=== PATIENT | female | born 1955 | race Caucasian/White ===

== ENCOUNTER → 2018-11-13 10:01 | Outpatient (CLI) | payer OTHER, SELFPAY | PROVIDERS: Family Provider Physician Assistant; PCP Physician Assistant; Visit Provider Nurse Practitioner Gerontology | DX: C50.919 Malignant neoplasm of unspecified site of unspecified female breast (principal); M85.851 Other specified disorders of bone density and structure, right thigh; Z78.0 Asymptomatic menopausal state; Z82.62 Family history of osteoporosis; E07.9 Disorder of thyroid, unspecified | CPT/HCPCS: 77080 ==

== ENCOUNTER → 2018-11-29 08:06 | Outpatient (CLI) | payer OTHER, SELFPAY ==
--- NOTE | 2018-11-29 | DI.MG.S_ITS ---
UNILATERAL LEFT DIGITAL SCREENING MAMMOGRAM 3D/2D WITH CAD POST MASTECTOMY WITH AUGMENTATION: 11/29/2018 CLINICAL: Routine screening. Personal history of right breast cancer. Comparison is made to exams dated: 11/12/2017 mammogram, 09/30/2015 mammogram, and 11/09/2016 mammogram - [facility]. The tissue of left breast is heterogeneously dense. This may lower the sensitivity of mammography. Current study was also evaluated with a Computer Aided Detection (CAD) system. There is an asymmetry in the left breast anterior depth superior region seen on the mediolateral oblique view only, with possible associated architectural distortion. Finding is best noted on tomographic LMLO slice 40/67. There is an asymmetry in the left breast middle depth lateral region seen on the craniocaudal view only. Left breast implant with lobulated contours suggesting implant rupture appears stable to prior exams. IMPRESSION: INCOMPLETE: NEEDS ADDITIONAL IMAGING EVALUATION 1) The asymmetry in the left breast anterior depth superior region is indeterminate. Additional views with possible ultrasound are recommended. 2) The asymmetry in the left breast middle depth lateral region is indeterminate. Additional views with possible ultrasound are recommended. This exam was interpreted at Station ID: [id number]. NOTE: For mammograms, a report in lay terms will be sent to the patient. Approximately 15% of breast malignancies will not be visualized mammographically. In the management of a palpable breast mass, a negative mammogram must not discourage biopsy of a clinically suspicious lesion. Electronically Signed By: Fabian Rouse M.D. ecl/:11/29/2018 15:12:43 copy to: [facility] letter sent: Additional Imaging Needed ACR BI-RADS Category 0: Incomplete 3340F
[2018-11-29 09:47] LABS: Add Manual Diff / Slide Review NO; Basophils Absolute Auto 0 /uL (0-100); Basophils Percent Auto 0.5 % (0-2); Eosinophils Absolute Auto 200 /uL (0-450); Hematocrit 40.9 % (36-46); Hemoglobin 13.5 g/dL (12.0-16.0); Lymphocytes Absolute Auto 2100 /uL (1100-4500); Lymphocytes Percent Auto 27.5 % (25-40); Mean Corpuscular HGB Conc 33.1 % (30-36); Mean Corpuscular Hemoglobin 29.5 PG (26-34); Mean Corpuscular Volume 89.3 fL (80-100); Monocytes Absolute Auto 500 /uL (0-900); Monocytes Percent Auto 6.2 % (3-14); Neutrophils Absolute Auto 4900 /uL (1500-7000); Neutrophils Percent Auto 63.8 % (50-75); Platelet Count 272 X10^3/uL (150-400); Red Blood Cell Count 4.58 X10^6/uL (4.0-5.2); Red Cell Distribution Width 13.3 % (11.6-14.8); White Blood Cell Count 7.7 X10^3/uL (4.5-11.0)
[2018-11-29 10:19] LABS: Alanine Aminotransferase 45 IU/L (9-52); Albumin 4.4 g/dL (3.5-5.0); Albumin Globulin Ratio 1.5 (1.0-2.8); Alkaline Phosphatase 57 U/L (38-126); Aspartate Aminotransferase 32 IU/L (14-36); BUN Creatinine Ratio 22.5 (6-22); Bilirubin Total 0.4 mg/dL (0.2-1.3); Blood Urea Nitrogen 18 mg/dL (7-17); Calcium 9.3 mg/dL (8.4-10.2); Carbon Dioxide 25 mmol/L (22-32); Chloride 101 mmol/L (98-107); Estimated Glomerular Filt Rate > 60.0 mL/min (>60); Glucose 189 mg/dL (80-110); HEMOLYSIS < 15 (0-50); Potassium 4.3 mmol/L (3.4-5.1); Sodium 138 mmol/L (137-145); Total Protein 7.4 g/dL (6.3-8.2)
== END ==
PROVIDERS: Family Provider Nurse Practitioner Gerontology; PCP Physician Assistant; Visit Provider Physician Assistant
DX: Z12.31 Encounter for screening mammogram for malignant neoplasm of breast (principal); C50.919 Malignant neoplasm of unspecified site of unspecified female breast
CPT/HCPCS: 36415; 77063; 77067; 80053; 85025

== ENCOUNTER → 2019-01-01 14:43 | Outpatient (CLI) | payer OTHER, SELFPAY ==
--- NOTE | 2019-01-01 14:47 | DI.MG.S_ITS ---
UNILATERAL LEFT DIGITAL DIAGNOSTIC MAMMOGRAM 3D/2D WITH ADDITIONAL VIEWS POST MASTECTOMY: 01/01/2019 CLINICAL: Additional evaluation requested from prior study. Comparison is made to exams dated: 11/29/2018 mammogram, 11/12/2017 mammogram, and 11/09/2016 mammogram - [facility]. The tissue of left breast is heterogeneously dense. This may lower the sensitivity of mammography. Previously noted asymmetry in the left breast anterior depth superior region seen on the mediolateral oblique view only with possible associated architectural distortion seen on comparison screening mammogram resolves with additional views and likely represented superimposition of benign anatomic tissues. This appeared to localize to the superior lateral left breast on comparison tomosynthesis views. Previously noted asymmetry in the left breast middle depth lateral region seen on the craniocaudal view only on comparison screening mammogram resolves with additional views and likely represented superimposition of benign anatomic tissues. Partially imaged breast implant noted. IMPRESSION: INCOMPLETE: NEEDS ADDITIONAL IMAGING EVALUATION Previously noted asymmetry in the left breast anterior depth superior region seen on the mediolateral oblique view only with possible associated architectural distortion seen on comparison screening mammogram resolves with additional views and likely represented superimposition of benign anatomic tissues. This appeared to localize to the superior lateral left breast on comparison tomosynthesis views. A targeted ultrasound is recommended and will be performed immediately following this exam. This exam was interpreted at Station ID: [id number]. NOTE: For mammograms, a report in lay terms will be sent to the patient. Approximately 15% of breast malignancies will not be visualized mammographically. In the management of a palpable breast mass, a negative mammogram must not discourage biopsy of a clinically suspicious lesion. Electronically Signed By: Fabian Rouse M.D. ecl/:01/01/2019 15:57:22 copy to: [facility] BI-RADS Category 0: Incomplete 3340F
--- NOTE | 2019-01-01 14:48 | DI.US.S_ITS ---
LIMITED ULTRASOUND OF LEFT BREAST: 01/01/2019 CLINICAL: Patient returns today to evaluate an architectural distortion in the left breast. Comparison is made to exams dated: 01/01/2019 mammogram, 11/29/2018 mammogram, 11/12/2017 mammogram, 11/09/2016 mammogram, 09/30/2015 mammogram, and 09/22/2014 mammogram - [facility]. Real-time and Doppler ultrasound of the left breast upper outer quadrant were performed. Gutierrez scale images of the real-time examination were reviewed. No underlying breast mass or abnormality is identified. There is no ultrasound correlate for the previously noted asymmetry in the left breast anterior depth superior region seen on the mediolateral oblique view only with possible associated architectural distortion on comparison screening mammograms, which also resolved on additional diagnostic mammogram views performed earlier today. IMPRESSION: NEGATIVE There is no sonographic evidence of malignancy in the imaged portions of the left breast. Return to annual screening mammography is recommended. The patient is advised to monitor her breasts and to return sooner for re-evaluation should she feel anything grow or change. This exam was interpreted at Station ID: [id number]. Electronically Signed By: Fabian Rouse M.D. ecl/:01/01/2019 15:59:39 copy to: [facility] letter sent: Normal Exam Ultrasound BI-RADS: 1 Negative
== END ==
PROVIDERS: PCP Physician Assistant
DX: R92.8 Other abnormal and inconclusive findings on diagnostic imaging of breast (principal)
CPT/HCPCS: 76642; 77065; G0279

== ENCOUNTER → 2020-04-02 14:59 | Outpatient (CLI) | payer OTHER, SELFPAY ==
--- NOTE | 2020-04-02 15:29 | DI.MG.S_ITS ---
UNILATERAL LEFT DIGITAL SCREENING MAMMOGRAM 3D/2D WITH CAD POST LUMPECTOMY WITH AUGMENTATION: 04/02/2020 CLINICAL: Routine screening. Personal history of right breast cancer. Comparison is made to exams dated: 01/01/2019 mammogram, 11/29/2018 mammogram, and 11/12/2017 mammogram - [facility]. There are scattered fibroglandular elements in left breast. Current study was also evaluated with a Computer Aided Detection (CAD) system. No significant masses, calcifications, or other findings are seen in the breast. There has been no significant interval change. IMPRESSION: NEGATIVE There is no mammographic evidence of malignancy. A 1 year screening mammogram is recommended. This exam was interpreted at Station ID: [id number]. NOTE: For mammograms, a report in lay terms will be sent to the patient. Approximately 15% of breast malignancies will not be visualized mammographically. In the management of a palpable breast mass, a negative mammogram must not discourage biopsy of a clinically suspicious lesion. Electronically Signed By: Kenneth collins/timothy:04/02/2020 16:48:26 copy to: [facility] letter sent: Normal Exam ACR BI-RADS Category 1: Negative 3341F
== END ==
PROVIDERS: PCP Physician Assistant
DX: Z12.31 Encounter for screening mammogram for malignant neoplasm of breast (principal); Z85.3 Personal history of malignant neoplasm of breast
CPT/HCPCS: 77063; 77067; 77080

== ENCOUNTER → 2020-04-23 08:55 | Outpatient (CLI) | payer OTHER, SELFPAY ==
--- NOTE | 2020-04-23 09:00 | DI.US.S_ITS ---
PROCEDURE: US CAROTID DOPPLER BI INDICATIONS: HTN; PLAQUE ON DENTAL FILM TECHNIQUE: Color and pulse Doppler interrogation was performed of both carotid systems, with image documentation and velocity measurements. COMPARISON: None. FINDINGS: Stenosis calculations are based on SRU (Society of Radiologists in Ultrasound) criteria. Right side: Brachial blood pressure: Not performed Common carotid artery peak systolic velocity: 66 cm/sec. Internal carotid artery peak systolic velocity: 57 cm/sec. Internal carotid artery end diastolic velocity: 21 cm/sec. External carotid artery peak systolic velocity: 69 cm/sec. ICA/CCA peak systolic ratio: 0.9 . Gutierrez scale imaging description: Small sessile focus of calcified plaque at the right ICA origin which causes a subjectively mild luminal stenosis. The waveforms remain normal. Percent internal carotid artery stenosis: Less than 50 % . Vertebral artery: Flow direction is antegrade. Left side: Brachial blood pressure: 123/77 mm Hg. Common carotid artery peak systolic velocity: 89 cm/sec. Internal carotid artery peak systolic velocity: 67 cm/sec. Internal carotid artery end diastolic velocity: 29 cm/sec. External carotid artery peak systolic velocity: 70 cm/sec. ICA/CCA peak systolic ratio: 0.8 . Gutierrez scale imaging description: Moderate length calcified plaque from the carotid bulb extending into the ICA for a length of about 1.8 cm causing mild subjective luminal stenosis. The waveform remains normal without spectral broadening. Percent internal carotid artery stenosis: Less than 50% . Vertebral artery: Flow direction is antegrade. IMPRESSION: 1. Calcified plaque involving the origins of both internal carotid arteries, without causing significant luminal stenosis on either side. Stenoses are estimated to be less than 50% bilaterally. 2. Antegrade vertebral artery flow bilaterally. Dictated by: Emilia Phillips M.D. on 04/23/2020 at 10:08 Approved by: Emilia Phillips M.D. on 04/23/2020 at 10:27
== END ==
PROVIDERS: PCP Physician Assistant; Referring Provider Physician Assistant; Visit Provider Physician Assistant
DX: I65.23 Occlusion and stenosis of bilateral carotid arteries (principal); R93.0 Abnormal findings on diagnostic imaging of skull and head, not elsewhere classified; E11.9 Type 2 diabetes mellitus without complications; I10 Essential (primary) hypertension; E78.5 Hyperlipidemia, unspecified
CPT/HCPCS: 93880

== ENCOUNTER → 2020-05-11 09:34 | Outpatient (CLI) | payer OTHER, SELFPAY ==
[2020-05-12 09:15] LABS: COVID19 Sendout Not Detected (Not Detect)
== END ==
PROVIDERS: PCP Physician Assistant; Visit Provider Physician Assistant
DX: Z11.59 Encounter for screening for other viral diseases (principal)
CPT/HCPCS: 87635

== ENCOUNTER 2020-05-14 08:03 | Day surgery (SDC) | payer OTHER, SELFPAY ==
[2020-05-14] VITALS (8 sets, daily range): BP systolic 115–134; BP diastolic 68–78; PULSE 77–101; RESP 10–17; TEMP 36.3; O2SAT 94–99; BMI 29.8
[2020-05-14] MEDS: SODIUM CHLORIDE 0.9% 1,000 ML 200 ML IV (08:24)
--- NOTE | 2020-05-14 09:27 | PM.HP.1 ---
History of Present Illness History of Present Illness Date Patient Seen: 05/14/20 Time Patient Seen: 09:27 Chief [place] [facility] [place]arrative: This is a 64-year-old woman who had a prior colonoscopy 13 years ago which was reportedly normal. She denies any new symptoms of abdominal pain, change in bowel habits, melena, hematochezia, or unexplained weight loss. She has a family history of colon cancer in a grandparent, but no primary relatives with colon cancers or colon polyps per the patient. She denies any significant medical problems. She does have type 2 diabetes and hypertension listed in her chart. She has never had a heart attack or stroke. Had some nausea after her prior mastectomy procedure. ROS: Sleep apnea, hearing aids, [employer]teen system review is otherwise negative other than as mentioned below and in HPI. PE: GENERAL: Well groomed and cooperative. Appears stated age. Answers questions promptly and appropriately. Vital signs noted. HENT: Normocephalic, atraumatic. Hearing intact. EYES: Conjunctiva pink, sclera white, no periorbital swelling. CARDIOVASCULAR: Regular rate. No pedal edema. RESPIRATORY: Non-tachypneic, breathing comfortably on room air. GASTROINTESTINAL: Abdomen soft and non-distended GENITALURINARY: No flank tenderness. MUSCULOSKELETAL: Equal tone and mass bilaterally. SKIN: Warm, dry, soft, appropriate color for ethnicity. No other lesions, rashes, or wounds. NEURO: Alert and Oriented X 3. No gross sensory deficits, or cognitive issues. PSYCH: Appropriate affect and mood. Patient History Medical History Breast cancer (Resolved 01/2012) Diabetes (Chronic 10/2017) Hyperlipemia (Chronic) Hypertension (Chronic) Hypothyroidism (Chronic) Obstructive sleep apnea (Chronic ~11/2017) Surgical History Hx of appendectomy (Resolved 06/2017) Hx of arthroscopy of knee (Resolved 07/2013) Status post dilation and curettage (~01/2014) Status post partial mastectomy (03/2013) Family & Social History Family History Mother Heart disease Social History: household members spouse Tobacco & Substance use: Smoking Status Never smoker alcohol intake current alcohol intake frequency holiday/special occasion Substance Use Type does not use Meds Home Medications and Allergies Home Medications Medication Instructions Recorded Confirmed Type CHOLECALCIFEROL (D-3) 1,000 iu PO QDAY #0 02/27/13 05/14/20 History multivitamin [Multiple Vitamins] 1 tab PO QDAY #0 05/13/13 05/14/20 History alendronate [Fosamax] 70 mg PO QWEEK 05/09/18 05/14/20 History calcium carbonate [Calcium 600] 600 mg PO DAILY 05/09/18 05/14/20 History Fish Oil See Rx Instructions .ROUTE .COMPLEX 06/06/18 05/14/20 History Glucometer #1 ea 06/06/18 08/13/19 Rx Glucosamine/Chondroitin See Rx Instructions .ROUTE .COMPLEX 06/06/18 05/14/20 History Lancets #100 each 06/06/18 08/13/19 Rx Magnesium See Rx Instructions .ROUTE .COMPLEX 06/06/18 05/14/20 History Test Strips #100 each 06/06/18 08/13/19 Rx levothyroxine 50 mcg tablet 50 mcg PO DAILY #90 tab 02/27/19 05/14/20 Rx amlodipine 5 mg-benazepril 20 mg 1 cap PO DAILY #90 cap 08/13/19 05/14/20 Rx capsule simvastatin 20 mg tablet 20 mg PO HS #90 tab 08/13/19 05/14/20 Rx Bilateral Hearing Aids #1 ea 10/06/19 Rx bupropion HCl 150 mg tablet,12 hr 150 mg PO QPM #90 tab 11/03/19 05/14/20 Rx sustained-release letrozole [Femara] 2.5 mg PO QPM #90 tab 12/11/19 05/14/20 Rx dulaglutide 0.75 mg/0.5 mL 0.75 mg SUBCUT QWEEK #2 ml 12/16/19 05/14/20 Rx subcutaneous pen injector gabapentin 300 mg PO DAILY #90 cap 04/14/20 05/14/20 Rx Allergies Allergy/AdvReac Type Severity Reaction Status Date / Time adhesive [ADHESIVE] Allergy Mild Tape/rash Verified 05/14/20 08:26 paper tape ok erythromycin base Allergy Mild Nausea Verified 05/14/20 08:26 [ERYTHROMYCIN BASE] metformin AdvReac Intermediate Diarrhea Verified 05/14/20 08:26 CAT DANDER Allergy Intermediate TICKLE IN Uncoded 05/11/20 09:33 THROAT AND COUGHING PAIN MEDICATION AdvReac Intermediate NAUSEA. Uncoded 05/11/20 09:33 UNSURE IF OXYCODONE OR HYDROCODONE Exam Vital Signs (past 8 hours): - 05/14/20 08:30 Temperature 97.4 F L Pulse Rate 101 H Respiratory Rate 16 Blood Pressure 134/78 Pulse Oximetry 99 Oxygen Delivery Method Room Air Assessment & Plan Assessment and plan (1) At average risk for colon cancer: Status: Acute Assessment & Plan narrative: Risks and benefits of screening colonoscopy and possible polypectomy were discussed with the patient including risk of bleeding, perforation, need for additional procedures, risks of anesthesia. The patient desires to proceed with the colonoscopy procedure. COVID-19 COVID-19 status: Negative Result date/Date tested (Pos, Neg/Pending): 05/11/20 Time Spent With Patient Time with patient: 15-24 minutes Quality VTE Deep Vein Thrombosis/Pulmonary Embolism Present on Admission: No
--- NOTE | 2020-05-14 09:30 | PM.OP.ENDO ---
Operative Date/Time/Diagnoses Date of procedure: 05/14/20 Time of procedure: 09:31 Pre-op diagnosis: Average risk for colon cancer, normal colonoscopy 13 years ago Post-op diagnosis: other (No colon polyps or masses identified, very tortuous colon, moderate internal hemorrhoids) Procedure & Clinicians Study performed: Colonoscopy Procedure sedation performed by endoscopy Indications: Average risk for colon cancer, over 10 years since last colonoscopy Surgeon: Jessica Lizarraga Procedure Notes SCOAP/Timeout: For for Procedure in detail: The patient was brought to the room and placed in left lateral decubitus position with all bony prominences padded. A time-out was performed and then the patient was given procedural sedation starting with 2 mg of Versed and 100 mcg of fentanyl. Total of 5 mg of Versed and 150 micro g of fentanyl were given for the entire procedure Vitals were monitored throughout the procedure and remained stable. Once adequately sedated, the procedure was begun. A rectal exam was performed revealing no abnormalities. The colonoscope was then introduced to the rectum and advanced to the cecum in the usual fashion. The colon was very tortuous and required advanced maneuvers to reach the cecum safely. The cecum was identified by the appendiceal orifice, the mucosal tri-fold, and the ileocecal valve. The scope was then retracted while rotating side to side and examining each mucosal fold. At the conclusion of the procedure retroflexion was performed and small grade 2-3 internal hemorrhoids without stigmata of bleeding were seen. The scope was then withdrawn from the rectum the procedure was concluded. The patient tolerated the procedure well and was transferred to the PACU in stable condition. Scope withdrawal time: 8 Sedation minutes: 19 Findings: other findings (Tortuous colon, otherwise normal) Specimen(s): none sent Complications: none Post-procedure Recommendations: Colonscopy in 10 years Follow up: as needed Disposition: PACU
[2020-05-14] MEDS: MIDAZOLAM 5 MG/5 ML VIAL IV (09:31)
[2020-05-14] MEDS: fentaNYL 250 MCG/5 ML INJ IV (09:31)
== END 2020-05-14 10:30 | disposition home or self-care (01) ==
PROVIDERS: PCP Physician Assistant; Referring Provider Physician Assistant; Visit Provider Surgery
PROC: 0DJD8ZZ Inspection of Lower Intestinal Tract, Via Natural or Artificial Opening Endoscopic (ICD-10-PCS; CPT 45378; principal; 2020-05-14 09:15)
DX: Z12.11 Encounter for screening for malignant neoplasm of colon (principal); E11.9 Type 2 diabetes mellitus without complications; E78.5 Hyperlipidemia, unspecified; I10 Essential (primary) hypertension; E03.9 Hypothyroidism, unspecified; G47.33 Obstructive sleep apnea (adult) (pediatric); K64.1 Second degree hemorrhoids
CPT/HCPCS: G0121; 99152; J2250; J3010

== ENCOUNTER → 2021-04-08 08:05 | Outpatient (CLI) | payer OTHER, SELFPAY ==
--- NOTE | 2021-04-08 | DI.MG.S_ITS ---
UNILATERAL LEFT DIGITAL SCREENING MAMMOGRAM 3D/2D WITH CAD POST MASTECTOMY WITH AUGMENTATION: 04/08/2021 CLINICAL: Routine screening. Personal history of right breast cancer. Comparison is made to exams dated: 04/02/2020 mammogram, 01/01/2019 mammogram, and 11/29/2018 mammogram - [facility]. There are scattered fibroglandular elements in left breast. Current study was also evaluated with a Computer Aided Detection (CAD) system. Left breast implant is stable. No significant masses, calcifications, or other findings are seen in the breast. There has been no significant interval change. IMPRESSION: NEGATIVE There is no mammographic evidence of malignancy. A 1 year screening mammogram is recommended. This exam was interpreted at Station ID: [id number]. NOTE: For mammograms, a report in lay terms will be sent to the patient. Approximately 15% of breast malignancies will not be visualized mammographically. In the management of a palpable breast mass, a negative mammogram must not discourage biopsy of a clinically suspicious lesion. Electronically Signed By: Emilia ramachandran/timothy:04/08/2021 09:17:53 copy to: [facility] letter sent: Normal Exam ACR BI-RADS Category 1: Negative 3341F
== END ==
PROVIDERS: PCP Physician Assistant; Referring Provider Internal Medicine; Visit Provider Internal Medicine
DX: Z12.31 Encounter for screening mammogram for malignant neoplasm of breast (principal); Z85.3 Personal history of malignant neoplasm of breast
CPT/HCPCS: 77063; 77067

== ENCOUNTER → 2023-06-12 08:00 | Outpatient (CLI) | payer OTHER, SELFPAY ==
--- NOTE | 2023-06-12 | DI.MG.S_ITS ---
UNILATERAL LEFT DIGITAL SCREENING MAMMOGRAM 3D/2D WITH CAD WITH AUGMENTATION: 06/12/2023 CLINICAL: Routine screening. Breast cancer. Comparison is made to exams dated: 01/09/2022 mammogram - [facility], 04/08/2021 mammogram, and 04/02/2020 mammogram - [facility]. There are scattered areas of fibroglandular density in the left breast (category b / 25%-50% glandular tissue). Current study was also evaluated with a Computer Aided Detection (CAD) system. Left breast implant is stable. No significant masses, calcifications, or other findings are seen in the breast. There has been no significant interval change. IMPRESSION: NEGATIVE There is no mammographic evidence of malignancy. A 1 year screening mammogram is recommended. This exam was interpreted at Station ID: [id number]. NOTE: For mammograms, a report in lay terms will be sent to the patient. Approximately 15% of breast malignancies will not be visualized mammographically. In the management of a palpable breast mass, a negative mammogram must not discourage biopsy of a clinically suspicious lesion. Electronically Signed By: Kayla arora/timothy:06/12/2023 11:29:54 copy to: [facility] letter sent: Normal Exam ACR BI-RADS Category 1: Negative 3341F
== END ==
PROVIDERS: PCP Physician Assistant; Referring Provider Internal Medicine Medical Oncology; Visit Provider Internal Medicine Medical Oncology
DX: Z12.31 Encounter for screening mammogram for malignant neoplasm of breast (principal); Z85.3 Personal history of malignant neoplasm of breast
CPT/HCPCS: 77063; 77067

== ENCOUNTER → 2024-06-20 13:05 | Outpatient (CLI) | payer OTHER, SELFPAY ==
--- NOTE | 2024-06-20 13:07 | DI.MG.S_ITS ---
UNILATERAL LEFT DIGITAL SCREENING MAMMOGRAM 3D/2D WITH CAD WITH AUGMENTATION: 06/20/2024 CLINICAL: Routine screening. Personal history of right breast cancer. Comparison is made to exams dated: 06/12/2023 mammogram - [facility], 01/09/2022 mammogram - [facility], and 04/08/2021 mammogram - [facility]. There are scattered areas of fibroglandular density (category b / 25%-50% glandular tissue). Current study was also evaluated with a Computer Aided Detection (CAD) system. Left breast implant is stable. No significant masses, calcifications, or other findings are seen in the breast. There has been no significant interval change. IMPRESSION: NEGATIVE There is no mammographic evidence of malignancy. A 1 year screening mammogram is recommended. This exam was interpreted at Station ID: [id number]. NOTE: For mammograms, a report in lay terms will be sent to the patient. Approximately 15% of breast malignancies will not be visualized mammographically. In the management of a palpable breast mass, a negative mammogram must not discourage biopsy of a clinically suspicious lesion. Electronically Signed By: Pete camejo/timothy:06/20/2024 16:42:45 copy to: [facility] letter sent: Normal Exam ACR BI-RADS Category 1: Negative
== END ==
PROVIDERS: PCP Physician Assistant; Referring Provider Nurse Practitioner Family; Visit Provider Physician Assistant
DX: Z12.31 Encounter for screening mammogram for malignant neoplasm of breast (principal); Z85.3 Personal history of malignant neoplasm of breast
CPT/HCPCS: 77063; 77067

== ENCOUNTER → 2025-04-17 14:05 | Outpatient (CLI) | payer OTHER, SELFPAY ==
--- NOTE | 2025-04-17 14:06 | DI.ECHO.S_ITS ---
[facility] : : [address] : : [place] : : [id number] : : Phone: [phone] Echocardiogram Report + + :Name: DIONTE VILLAFANA I Study Date: 04/17/2025 Height: 66 in : :[facility] ReadingLocation: Weight: 170 lb : : Gender: Female BSA: 1.9 m2 : :: 1955 Age: 69 yrs BP: 132/72 mmHg: :Reason For Study: MURMUR : :Ordering Physician: SUJIT, : :GABRIELLE Performed By: Krishna Jones : :Referring: GABRIELLE BECKETT : + + Interpretation Summary Mild aortic stenosis with a peak velocity of 2.5 m/s. Normal LV systolic function. LVEF is 50 to 55%. Normal RV size and function. Normal atrial sizes. Other findings as below. Procedure: A two-dimensional transthoracic echocardiogram with color flow and Doppler was performed. The study quality was technically adequate. Comparison is made with the echocardiogram of 10/24/12. The patient was in normal sinus rhythm during the exam. Left Ventricle: The left ventricle is normal in size. There is normal left ventricular wall thickness. There is no ventricular septal defect visualized. The ejection fraction is estimated to be 50-55%. Left ventricular systolic function is normal. Left ventricular wall motion is normal. Diastolic parameters suggest a relaxation abnormality of the left ventricle, consistent with probable normal filling pressures. Right Ventricle: The right ventricle is normal in size and function. Atria: The left atrial size is normal. Right atrial size is normal. There is no Doppler evidence for an interatrial shunt. Mitral Valve: The mitral valve leaflets appear normal. There is no evidence of stenosis, fluttering, or prolapse. There is trace mitral regurgitation. Aortic Valve: A bicuspid aortic valve cannot be excluded. The aortic valve is moderately calcified. There is mild aortic stenosis. The peak aortic velocity is 2.5 m/sec. The aortic valve mean gradient is 15.8 mmHg. The calculated aortic valve area is 1.3 cm2. There is trace aortic regurgitation. Tricuspid Valve: The tricuspid valve leaflets are thin and pliable. There is trace tricuspid regurgitation. Pulmonic Valve: The pulmonic valve is not well seen, but is grossly normal. There is no pulmonic valvular regurgitation. Great Vessels: The aortic root is normal size. The dimensions of the ascending aorta are normal. The pulmonary artery is normal size. The IVC is of normal diameter and collapses greater than 50% with a sniff. This suggests a low right atrial pressure of 3 mm Hg. Pericardium/ Pleura There is no pericardial effusion. There is no pleural effusion. MMode/2D Measurements & Calculations LVIDd: 5.2 cm LVOT diam: 2.0 cm LVIDs: 4.0 cm Ao root diam: 3.2 cm FS: 22.6 % asc Aorta Diam: 3.2 cm EPSS: 0.63 cm Ao Arch Diam (Prox Trans): 2.1 cm IVSd: 0.90 cm LVPWd: 0.92 cm LV fischer. diameter/BSA (cm/m^2): 2.8 LV sys. diameter/BSA (cm/m^2): 2.2 LA A2 area: 16.7 cm2 RA long axis: 4.0 cm LA A4 area: 20.3 cm2 RA area: 8.6 cm2 LA length (vol): 5.0 cm RA vol: 15.8 ml LA vol: 57.0 ml RA : 8.4 ml/m2 LA vol index: 30.5 ml/m2 IVC diam: 1.8 cm RVD1 (basal): 3.2 cm RVD2 (mid): 2.7 cm TAPSE: 2.1 cm Doppler Measurements & Calculations Ao V2 max: 246.3 cm/sec LVOT Max Suleman: 117.0 cm/sec Ao V2 mean: 192.6 cm/sec LV V1 max P.5 mmHg Ao max P.3 mmHg LV V1 VTI: 24.3 cm Ao mean P.8 mmHg ADONIS(I,D): 1.3 cm2 Ao V2 VTI: 55.7 cm ADONIS(V,D): 1.4 cm2 sev ratio: 0.44 ADONIS indexed to BSA (cm^2/m^2): 0.71 MV E max suleman: 43.3 cm/sec TR max suleman: 219.8 cm/sec MV A max suleman: 79.8 cm/sec TR max P.3 mmHg MV E/A: 0.54 PA V2 max: 114.0 cm/sec Med Peak E' Suleman: 2.9 cm/sec PA V2 mean: 76.3 cm/sec E/E' med: 15.0 PA mean P.6 mmHg Lat Peak E' Suleman: 2.9 cm/sec PA pr(Accel): 58.4 mmHg E/E' lat: 14.8 E/e' average: 14.9 MV dec time: 0.29 sec SV(LVOT): 74.0 ml Reading Physician:04:09 PM
--- NOTE | 2025-04-17 14:06 | DI.RAD.S_ITS ---
PROCEDURE: XR DEXA AXIAL SKELETON INDICATIONS: postmenopause screening, COMPARISON: [facility], , XR DEXA AXIAL SKELETON, 04/02/2020, 15:24. FINDINGS: Lumbar Spine: Bone mineral density 0.997 g/cm2, T score -0.5. There is interval 2.1% increase in total lumbar spine bone mineral density. Left Femoral Neck: Bone mineral density 0.630 g/cm2, T score -2.0. Left Hip: Bone mineral density 0.828 g/cm2, T score -0.9. There is interval 2.7% decrease in total left hip bone mineral density. Fracture Risk Calculation (when applicable): 10-year fracture risk of a major osteoporotic fracture 11 percent and of a hip fracture 2.0 percent. (T score greater or equal to -1.0 to: NORMAL) (T score from -1.1 to -2.4: OSTEOPENIA) (T score less than or equal to -2.5: OSTEOPOROSIS) IMPRESSION: Osteopenia as above. Follow-up guidelines as follows: Osteoporosis: Consider a repeat DEXA and Vertebral Fracture Assessment (VFA) exam in 2 years or sooner if medically necessary, to reassess this patient's status. Osteopenia: Consider a repeat DEXA in 2-3 years to reassess this patient's status, or if there is a new clinical indication. Normal: Consider a repeat DEXA in 5 years or sooner, or if there is a new clinical indication. All treatment decisions require clinical judgment and consideration of individual patient factors, including patient preferences, comorbidities, previous drug use, risk factors not captured in the FRAX model (e.g., frailty, falls, vitamin D deficiency, increased bone turnover, interval significant decline in bone density ) and possible under- or over-estimation of fracture risk by FRAX. In addition, the NOF Guide recommends that FDA-approved medical therapies be considered in postmenopausal women and men age >= 50 years with a: * Hip or vertebral (clinical or morphometric) fracture * T-score of <=-2.5 at the spine or hip * Ten-year fracture probability by FRAX of >= 3% for hip fracture or >=20% for major osteoporotic fracture. Dictated by: Kennedy Snow M.D. on 04/18/2025 at 23:53 Approved by: Kennedy Snow M.D. on 04/18/2025 at 23:53
== END ==
PROVIDERS: PCP Physician Assistant; Referring Provider Student in an Organized Health Care Education/Training Program; Visit Provider Student in an Organized Health Care Education/Training Program
DX: I35.0 Nonrheumatic aortic (valve) stenosis (principal); R01.1 Cardiac murmur, unspecified; M85.852 Other specified disorders of bone density and structure, left thigh; Z78.0 Asymptomatic menopausal state
CPT/HCPCS: 77080; 93306

== ENCOUNTER → 2025-08-08 13:47 | Outpatient (CLI) | payer OTHER, SELFPAY ==
--- NOTE | 2025-08-08 13:49 | DI.MG.S_ITS ---
MM screening mammo uni impl LT: 08/08/2025. BI-RADS: 2 CLINICAL: 69-year old female for left screening mammogram. No Tyrer-Cuzick risk score calculation due to the patient's personal history of breast cancer. Patient reports a history of right breast carcinoma diagnosed at age 56. Status-post right mastectomy with hormonal therapy. Patient has undergone neoadjuvant chemotherapy. No first- degree family history of breast cancer. The patient has a left breast implant. The patient had a prior right breast biopsy. PRIOR EXAMS 06/20/2024, 06/12/2023, 01/09/2022, 04/08/2021, MAMMOGRAPHY TECHNIQUE: 2D and 3D (tomosynthesis) digital mammographic views obtained, with additional images as needed for full coverage. Current study was also evaluated with a Computer Aided Detection (CAD) system. DENSITY Left: B. There are scattered areas of fibroglandular density. IMPLANTS Left: Breast implant present on the left. MAMMOGRAPHY FINDINGS Left: There are no suspicious masses, calcifications, or other findings in the breast. No significant change from comparison. IMPRESSION: Left * No evidence of malignancy with benign findings. RECOMMENDATIONS Left * Annual screening mammography. OVERALL ASSESSMENT CATEGORY BI-RADS-2: Benign. The [employer] recommends annual screening mammography beginning at age 40 for women with average risk of breast cancer. ELECTRONICALLY SIGNED: Emilia Phillips M.D. on 08/10/2025 at 11:55:06 AM PT Interpreting Station ID: [id number]
== END ==
LOC: MAMMO 13:48
PROVIDERS: PCP Student in an Organized Health Care Education/Training Program; Referring Provider Student in an Organized Health Care Education/Training Program; Visit Provider Student in an Organized Health Care Education/Training Program
DX: Z12.31 Encounter for screening mammogram for malignant neoplasm of breast (principal); Z85.3 Personal history of malignant neoplasm of breast; Z90.11 Acquired absence of right breast and nipple; Z98.82 Breast implant status
CPT/HCPCS: 77063; 77067